=== PATIENT | male | born 1930 | race Caucasian/White ===

== ENCOUNTER 2017-01-12 10:00 | Inpatient (IN) | payer MEDICARE, OTHER ==
[~2017-01-12] VITALS: Ht 172.7 cm; Wt 84.2 kg
--- NOTE | ~2017-01-12 | CON ---
PATIENT'S NAME: GABBY [facility] AGE: 86 Y [address] ROOM: [id number] [place], [place] [address] LOCATION: GPCU ADMIT DATE: 01/12/2017 Consultation DISCHARGE DATE: FAMILY PHYSICIAN: PHYSICIAN, UNKNOWN ATTENDING PHYSICIAN: Gentry BALL DATE OF CONSULTATION: 01/12/2017 REFERRING PHYSICIAN: Anthony Fenton MD HOSPITAL CONSULTATION REASON FOR CONSULTATION: Hematochezia. HISTORY OF PRESENT ILLNESS: This is a very pleasant, 86-year-old gentleman with past medical history of coronary artery disease, last placement of drug-eluting stent placed in May 2016. The patient has been on dual anti-platelet therapy, being Brilinta and aspirin. The patient also has a past medical history significant for hypertension, and systolic heart failure. The patient presented to [facility] as he woke up at 4:00 a.m., on the day of presentation with multiple episodes of bright red blood per rectum. The patient reports at that time, there were clots that were visualized. He was seen at the [facility] and found to have a hemoglobin baseline of 14.0, with a recheck hemoglobin of 11.4. The patiently initially was normotensive, though became hypotensive with systolic blood pressure in the 80s. He was fluid resuscitated and given one unit of packed red blood cells on transferring to [facility]. At that time, the patient was seen and he did report a distant history of diarrhea, evaluated on January 04 by his primary care. He does state he was given some medicine, though cannot recall. He denies any associated abdominal pain, chest pain, chest pressure, shortness of breath, fever, chills, unexplained weight loss, or lower extremity edema. He also did state that he underwent a colonoscopy completed by his primary care in 2008 as the records were reviewed. It did show that there was some firmness on digital exam as he was sent to a general surgeon, though cannot recall any more details regarding this. PAST MEDICAL HISTORY: 1. BPH. 2. Coronary artery disease, status post PCI, last completed in May 2016, and currently on dual anti-platelet including aspirin and Brilinta. 3. Hypertension. 4. Systolic heart failure. PAST SURGICAL HISTORY: PATIENT'S NAME: [facility] AGE: 86 Y [address] ROOM: [address] [address] LOCATION: GPCU ADMIT DATE: 01/12/2017 Consultation DISCHARGE DATE: FAMILY PHYSICIAN: PHYSICIAN, UNKNOWN ATTENDING PHYSICIAN: Gentry BALL Hernia repair, and colonoscopy in 2008. SOCIAL HISTORY: The patient chews tobacco. He drinks alcohol on occasional basis. He lives by himself as he is . His four years ago. He is a retired rancher. FAMILY HISTORY: Reports as a foster child though denies any other knowledge to the rest of his family's medical history. ALLERGIES: PENICILLIN. CURRENT MEDICATIONS: Please refer to the medication administration record. REVIEW OF SYSTEMS: All point review of systems was completed. All were negative except for those identified in the History of Present Illness. PHYSICAL EXAMINATION: GENERAL: A very pleasant, 86-year-old gentleman seen in Intensive Care, who appears to be in no acute distress. VITAL SIGNS: Temperature 97.6, pulse is 68, respirations are 16, blood pressure 158/75, and oxygen saturation is 96% on room air. SKIN: [place], warm, dry. No jaundice. HEENT: Head is normocephalic and atraumatic. Pupils are equal, round, and reactive to light. Sclerae are clear. Nonicteric. Oral mucosa is pink and moist. No thyromegaly. NECK: Soft and supple. CARDIOVASCULAR: Regular. Normal S1 and S2. RESPIRATORY: Respirations even and unlabored. LUNGS: Clear to auscultation. ABDOMEN: Soft, round, nontender, and nondistended. Bowel sounds positive x4 quadrants. MUSCULOSKELETAL: No muscle weakness or atrophy. EXTREMITIES: No clubbing, cyanosis, or edema. NEUROLOGICAL: Grossly nonfocal. LABORATORY DATA AND IMAGING STUDIES: Labs and Diagnostics: Laboratory obtained at the outside facility was reviewed. This did show a white blood cell count of 19.6, hemoglobin of 10.7, hematocrit of 32.5, and platelets of 292,000. Chemistry panel included a potassium of 4.4, chloride of 110, CO2 of 22.1, glucose 186, BUN of 37, and PATIENT'S NAME: LUIS ANTONIO [facility] AGE: 86 Y [address] ROOM: [id number] [place], [place] [address] [facility] ADMIT DATE: 01/12/2017 Consultation DISCHARGE DATE: FAMILY PHYSICIAN: PHYSICIAN, UNKNOWN ATTENDING PHYSICIAN: Gentry BALL creatinine of 1.9. Total bilirubin 0.3, alkaline phosphatase of 74, ALT of 25, and AST of 17. ASSESSMENT AND PLAN: Again, this is a very pleasant, 86-year-old gentleman who was transferred from [facility] with acute lower gastrointestinal bleed. In discussion with the hospitalist, the patient has been on aspirin as well as Brilinta for percutaneous coronary intervention stent placement in May 2016. At this time, it was discussed that we will go forth with a bleeding scan. We did discuss continuing aspirin for his coronary artery disease. Further recommendations to be given status post receipt of tagged red blood cell scan. He will also be placed on a Protonix drip in case this is more upper gastrointestinal bleed. Further recommendations to be given after review of the nuclear medicine scan. Thank you for this consult. BRITT ALEMAN, BLOCK CHOPPER HAND FOR ANTHONY FENTON MD MMF/modl /[id number] d: 01/15/17 1430 t: 01/18/17 1741, CONSULTATION REPORT
--- NOTE | ~2017-01-12 | DS ---
PATIENT'S NAME: LUIS ANTONIO PIERRE [facility] AGE: 86 Y [address] ROOM: [address] [place], [place] [address] LOCATION: GPCU ADMIT DATE: 01/12/2017 Discharge Summary DISCHARGE DATE: 01/17/2017 FAMILY PHYSICIAN: Physician, Unknown ATTENDING PHYSICIAN: Shelly Rinaldi PRINCIPAL DIAGNOSES: 1. Acute blood loss anemia. 2. Hematochezia. 3. Lower gastrointestinal bleed, secondary to diverticulosis. 4. Heart failure with preserved ejection fraction, acute on chronic. 5. Coronary artery disease, status post drug-eluting stent to LAD in May 2016. 6. Acute kidney injury and chronic kidney disease, resolved. HOSPITAL COURSE: An 86-year-old very pleasant gentleman was admitted to [facility] with hematochezia. He was found to have acute blood loss anemia. He was admitted to the hospital and then intensive care unit and required packed red blood cell transfusion to maintain his hemoglobin as well as hemodynamics. He was generously resuscitated with IV fluids to avoid shock. Gastroenterology was consulted, and it appeared that the patient was having a lower GI bleed, so nuclear tag red blood cell study was done, but failed to reveal any source of bleeding. A colonoscopy was done, which could not identify any active source of bleeding. An upper endoscopy was also done, which did show some gastric as well as duodenal erosions. He was receiving dual antiplatelets at admission and his Brilinta was held. The GI bleed was attributed to the diverticulosis, which resolved on its own. His hemoglobin remained stable during the rest of the course of the hospitalization. I discussed the case with Dr. Barkley, and he was okay to stop the Brilinta at this point. Gastroenterology also recommended holding the Brilinta at this point. After aggressive hydration in the hospital, the lower extremity edema, we started him on Lasix for one week with some potassium replacement. He also had some cellulitis on the lower extremities, and I will send him home on Augmentin for 1 week. We will have him followup with Dr. Barkley in 1 week in [place] with a BMP. DISCHARGE MEDICATIONS: Discharge medications include: 1. Aspirin 81 mg p.o. every day. 2. Atorvastatin 10 mg p.o. every night at bedtime. 3. Lopressor 25 mg p.o. twice daily. 4. Lisinopril 15 mg twice daily. 5. Diltiazem 120 mg p.o. every day. 6. Tamsulosin 0.4 mg p.o. every night at bedtime. 7. Calcium carbonate plus D tablet, 1 tablet p.o. every day. 8. Ascorbic acid 500 mg p.o. every day. PATIENT'S NAME: LUIS ANTONIO PIERRE [facility] AGE: 86 Y [address] ROOM: [id number] [place] [id number] [facility] ADMIT DATE: 01/12/2017 Discharge Summary DISCHARGE DATE: 01/17/2017 FAMILY PHYSICIAN: Physician, Unknown ATTENDING PHYSICIAN: Shelly Rinaldi 9. Cetirizine 10 mg p.o. every night at bedtime. 10. Augmentin 875/125 mg p.o. b.i.d., 10 tablets for 5 days. 11. Lasix 40 mg p.o. daily for one week. 12. KCl 10 mEq p.o. b.i.d. for one week. 13. Pantoprazole 40 mg p.o once daily for 6 weeks. ACTIVITY ON DISCHARGE: As tolerated. DIET: Low-sodium diet. PROGRESS NOTE FROM THE DAY OF THE DISCHARGE: SUBJECTIVE: No shortness of breath, headache, fever, or chills. OBJECTIVE: Blood pressure 131/64, 16, 66, 98.3, saturating 95% on room air. I's and O's: 1350 out, 965 in. Net negative of -385. LABS ON THE DAY OF DISCHARGE: White blood cell count 15, hemoglobin 8.8, platelets 262. BUN 12, creatinine 1.1, sodium 144, potassium 3.6, chloride 109, GFR greater than 60. Procalcitonin on two consecutive days was less than 0.05. He did continue to have leukocytosis during the course of the hospitalization, but no significant infectious source was identified other than the lower extremity erythema, and diagnosis of cellulitis was made, and he was sent home on Augmentin. I spent 35 minutes in discharge planning and coordinating care of this patient. MADRID A KHALID, MD ARI/modl /[id number] d: 01/18/17 0235 t: 01/21/17 1323, DISCHARGE SUMMARY
--- NOTE | ~2017-01-12 | HP ---
PATIENT'S NAME: GABBY [facility] AGE: 86 Y [address] ROOM: [place] [address] LOCATION: GICU ADMIT DATE: 01/12/2017 History & Physical DISCHARGE DATE: FAMILY PHYSICIAN: PHYSICIAN, UNKNOWN ATTENDING PHYSICIAN: Gentry BALL DATE OF SERVICE: CHIEF COMPLAINT: Hematochezia. HISTORY OF PRESENT ILLNESS: The patient is an 86-year-old gentleman with a past medical history of coronary artery disease, last stent of drug-eluting stent placed on May 28, 2016, with drug-eluting stent, on dual anti-platelet with Brilinta and aspirin; hypertension; and systolic heart failure, who presents here from [facility] with GI bleed. The patient reports that he woke up at 4 a.m. this morning and had multiple episodes of bright red per rectum bowel movement. He also reports of clot with bowel movement. He reports that he had several episodes and does not remember how many. He was seen in the [facility] and was found to have a drop in hemoglobin to 11.4 from a baseline of 14. The patient initially was normotensive; however, was noted to have low blood pressure with systolic blood pressure in the high 80s and 90s. The patient was given IV fluids, received 1 unit of O negative blood, and transferred to our hospital for further workup. The patient reports that he has had some distant history of diarrhea and was evaluated by his primary care doctor on January 04 for diarrhea; however, he reports that they gave him some medication which resolved it. The patient denies abdominal pain, chest pain, shortness of breath, productive cough, fever, chills, weight loss, lower extremity edema, and loss of consciousness. PAST MEDICAL HISTORY: 1. BPH. 2. CAD, status post PCI, last done in May 2016. 3. Hypertension. 4. Systolic heart failure. PAST SURGICAL HISTORY: Hernia repair and colonoscopy in 2008. FAMILY HISTORY: The patient reports that he is a foster kid and does not know much about his family members. SOCIAL HISTORY: PATIENT'S NAME: CHERRI [facility] AGE: 86 Y [address] ROOM: [place] [address] LOCATION: GICU ADMIT DATE: 01/12/2017 History & Physical DISCHARGE DATE: FAMILY PHYSICIAN: PHYSICIAN, UNKNOWN ATTENDING PHYSICIAN: Gentry BALL The patient chews tobacco. Occasional drink. The patient lives by himself. 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 MEDICATIONS: He is on: 1. Lipitor 10 mg. 2. Flomax 0.4 mg. 3. Calcium carbonate. 4. Vitamin C. 5. Zyrtec. 6. Aspirin 81 mg. 7. Lisinopril 10 mg. 8. Lopressor 25 mg p.o. b.i.d. 9. Brilinta 90 mg p.o. b.i.d. REVIEW OF SYSTEMS: All systems have been reviewed and are negative except for what I mentioned in the HPI. PHYSICAL EXAMINATION: VITAL SIGNS: Temperature 96.6, blood pressure 106/72, heart rate of 71, respiratory rate of 16, and saturating 98% on room air. GENERAL APPEARANCE: The patient is alert and awake, in no acute distress. HEENT: Head: Normocephalic, atraumatic. Eyes: Extraocular muscles intact. Nose: No nasal discharge. Mouth: Moist oral mucosa. Ears: No ear discharge. CHEST: Clear to auscultation bilaterally. Heart. Normal rate and rhythm. No murmur, rubs, or gallops heard. ABDOMEN: Soft, nontender, and nondistended. Bowel sounds active. SKIN: Warm to touch. MUSCULOSKELETAL: Range of motion intact. No obvious joint effusion. EXTREMITIES: No edema. Mild venous stasis change. CENTRAL NERVOUS SYSTEM: The patient is alert and oriented x3. Motor and sensory grossly intact. The patient has mild resting tremor in his right upper extremity which is chronic. LABORATORY DATA: Labs done at the outside hospital shows white blood cell count of 19.6, hemoglobin of 10.7, and platelets of 292. Creatinine of 1.9, BUN of 37, and glucose of 186. ASSESSMENT AND PLAN: 1. Acute blood loss anemia. The patient is an 86-year-old gentleman with a history of coronary artery disease, on aspirin and Brilinta, who presents here with gastrointestinal bleed, etiology most likely secondary to lower PATIENT'S NAME: LUIS ANTONIO PIERRE [facility] AGE: 86 Y [address] ROOM: [id number] [place], [place] [address] LOCATION: GICU ADMIT DATE: 01/12/2017 History & Physical DISCHARGE DATE: FAMILY PHYSICIAN: PHYSICIAN, UNKNOWN ATTENDING PHYSICIAN: Gentry BALL gastrointestinal bleed. The patient initially had labile blood pressure at [facility], was given 1 unit of packed red blood cells and fluids, and transferred to our facility. The patient is currently stable. Blood pressure 126/80 currently with a heart rate of 59. To continue IV fluids. To check hemoglobin q.6 hours. To keep hemoglobin greater than 8 since the patient has a history of coronary artery disease. We will continue aspirin; however, we will discontinue Brilinta. Case was discussed with Dr. Barkley on the phone and is agreeable. Also, case discussed with Dr. Lutz, and Dr. Lutz is agreeable with continuation of aspirin due to his coronary artery disease. Gastroenterology is consulted. The patient is going to have RBC tag scan and possible colonoscopy tomorrow. Etiology most likely lower gastrointestinal bleed; however, we will start Protonix drip just in case as this also could be upper gastrointestinal. 2. Gastrointestinal bleed. See problem #1. 3. History of coronary artery disease. Last stent placed in May 2016, drug eluting, in his left anterior descending, by Dr. Barkley. We will continue aspirin and hold Brilinta. Case discussed with Dr. Barkley. We will also continue his Lipitor. We will hold beta christie and lisinopril as the patient had recent history of labile blood pressure while in [place]. 4. Acute kidney injury. Patient noted to have a creatinine of 1.9, and his last creatinine in our hospital in January 2017 is 1.2. Etiology most likely prerenal. We will treat underlying etiology and start IV fluids. We will hold lisinopril and hypertensive medication. Also, avoid nephrotoxic medication. We will follow the patient closely. 5. Systolic heart failure. The patient's last echo shows ejection fraction close to 45%. The patient appears compensated currently. Holding lisinopril and beta christie due to early history of labile blood pressure. Currently, on IV fluids. We will follow the patient clinically. 6. Benign prostatic hypertrophy. We will hold Flomax for now due to low blood pressure. 7. Resting tremor noted to right upper extremity. Etiology most likely secondary to history of possible Parkinson disease. The patient reports that he has been having this for quite a while. We will follow clinically. 8. Tobacco abuse. The patient chews tobacco. Discussion was made about tobacco cessation. Greater than 3 minutes, but less than 10 minutes were spent about cessation. The patient is currently not ready to discontinue his tobacco chewing. We will offer the patient nicotine patch. 9. I have personally reviewed the patient's medical record including, but not limited to blood work. Total time spent with the patient is greater than 70 minutes, more than 50% of the time spent in direct patient care and patient consultation. Case was reviewed with the patient and nursing PATIENT'S NAME: LUIS ANTONIO PIERRE [facility] AGE: 86 Y [address] ROOM: [address] [address] LOCATION: [facility] ADMIT DATE: 01/12/2017 History & Physical DISCHARGE DATE: FAMILY PHYSICIAN: PHYSICIAN, UNKNOWN ATTENDING PHYSICIAN: Gentry BALL staff. All questions were answered to the patient's satisfaction. Case was reviewed with Dr. Lutz, our GI physician, and also with Dr. Barkley over the phone about antiplatelet use. We will admit the patient for gastrointestinal bleed. Code status was discussed on admission. Code status is full code. QUINN CHURCH MD AD/modl /[id number] D: T: HISTORY & PHYSICAL
[~2017-01-12 10:00] MED LIST: ASCORBIC ACID500 MG PO; ASPIRIN LO-DOSE81 MG PO; ASPIRIN325 MG PO; BRILINTA90 MG PO; CALCIUM 500 +1 EACH PO; FLOMAX0.4 MG PO; LASIX20 MG PO; LIPITOR10 MG PO; LOPRESSOR25 MG PO; LOPRESSOR50 MG PO; OMNICEF 300MG300 MG PO; PRINIVIL (ZESTR20 MG PO; PRINIVIL OR ZES10 MG PO; ZYRTEC10 MG PO
[2017-01-12] MEDS ORDERED: DILTIAZEM ER120 M2 PO (12:08)
[2017-01-12 13:17] LABS: HEMATOCRIT 30.9 % (33.0-50.0)
--- NOTE | 2017-01-12 17:45 | NUR ---
Significant Event: GI: 2 bloody stools. Hgb 10.0. CARDIO: Temp 97.6. HR 60s. SBP 130s-150s. Follow up: Tagged RBCs at 1830 today. Colonoscopy on 01/13.
[2017-01-12 18:15] LABS: HEMOGLOBIN 9.2 g/dL (11.0-16.0)
[2017-01-13 01:15] LABS: HEMOGLOBIN 8.6 g/dL (11.0-16.0)
--- NOTE | 2017-01-13 06:01 | NUR ---
BOWEL PREP X2 GIVEN THIS SHIFT. COPIOUS AMOUNTS OF BLOODY STOOLS AFTER BOWEL PREP. NPO SINCE SECOND PREP GIVEN. SR, SBP 110S-140S, PULSES GOOD. SERIAL H/H CONTINUE TO TREND DOWN. HOSPITALIST INFORMED AND CLOT TO BE DRAWN WITH NEXT LAB DRAW. REMAINS ON RA. GOOD APPETITE AND TOLERATED CLEAR LIQUIDS WELL FOR SUPPER. VOIDING PER URINAL, OUTPUT ADEQUATE. COLONOSCOPY SCHEDULED FOR TODAY. REPEAT RED-TAG SCAN SCHEDULED FOR TODAY. JODIE ROBLES RN
[2017-01-13 06:50] LABS: BASOPHIL % 0.1 %; EOSINOPHIL # 2.6 K/uL (0.0-0.5); EOSINOPHIL % 16.1 %; HEMATOCRIT 24.6 % (33.0-50.0); HEMOGLOBIN 8.2 g/dL (11.0-16.0); IMMATURE GRANULOCYTE # 0.1 K/uL (0.0-0.3); IMMATURE GRANULOCYTE % 0.6 %; LYMPHOCYTE # 3.4 K/uL (0.8-4.0); LYMPHOCYTE % 20.8 %; MCH 29.7 pg (27.0-34.0); MCHC 33.3 gm/dL (32.0-36.5); MCV 89.1 fl (83.0-98.0); MONOCYTE # 1.1 K/uL (0.0-1.0); MPV 9.6 fl (9.4-12.4); NEUTROPHIL # (ANC) 8.9 K/uL (1.4-9.0); NEUTROPHIL % 55.4 %; NRBC % 0 /100WBC (0-0.00); PLATELET COUNT 209 K/uL (150-450); RDW-CV 15.1 % (11.9-14.6)
[2017-01-13 06:51] LABS: RBC 2.76 M/uL (3.50-5.50); WBC 16.1 K/uL (4.0-11.0)
[2017-01-13 07:07] LABS: ALBUMIN 2.5 gm/dL (3.5-5.0); CREATININE 1.3 mg/dL (0.6-1.3); POTASSIUM 4.2 mMol/L (3.7-5.1); TOTAL BILIRUBIN 0.5 mg/dL (0.0-1.5)
[2017-01-13 07:14] LABS: ANION GAP 11.2 (10.0-19.0); TOTAL PROTEIN 4.5 g/dL (6.0-8.4)
[2017-01-13 15:54] LABS: HEMATOCRIT 22.7 % (33.0-50.0)
[2017-01-13 15:56] LABS: HEMOGLOBIN 7.5 g/dL (11.0-16.0)
--- NOTE | 2017-01-13 17:43 | NUR ---
Significant Event:GI: EGD/Colonscopy and tagged RBC study today. Diverticuli bleeding, excoriated duodenum. Hgb 7.5, 1 unit PRBCs given at 1700. 4 jordan blood BMs today, volumes 400 then 100 then 50 then 50 ml. Follow up: Q4H H&H. Call if Hgb < 8.0
[2017-01-13 19:16] LABS: HEMATOCRIT 25.5 % (33.0-50.0); HEMOGLOBIN 8.6 g/dL (11.0-16.0)
[2017-01-13 23:12] LABS: HEMATOCRIT 23.7 % (33.0-50.0)
[2017-01-13 23:13] LABS: HEMOGLOBIN 7.8 g/dL (11.0-16.0)
[2017-01-14 03:08] LABS: BASOPHIL % 0.1 %; EOSINOPHIL % 14.3 %; HEMATOCRIT 26.9 % (33.0-50.0); IMMATURE GRANULOCYTE # 0.1 K/uL (0.0-0.3); IMMATURE GRANULOCYTE % 0.5 %; LYMPHOCYTE # 3.3 K/uL (0.8-4.0); LYMPHOCYTE % 23.9 %; MCHC 33.5 gm/dL (32.0-36.5); MCV 86.8 fl (83.0-98.0); MONOCYTE # 0.9 K/uL (0.0-1.0); MONOCYTE % 6.8 %; MPV 9.6 fl (9.4-12.4); NEUTROPHIL # (ANC) 7.5 K/uL (1.4-9.0); NEUTROPHIL % 54.4 %; NRBC % 0 /100WBC (0-0.00); PLATELET COUNT 172 K/uL (150-450); RDW-CV 14.6 % (11.9-14.6); WBC 13.8 K/uL (4.0-11.0)
[2017-01-14 03:26] LABS: ALBUMIN 2.3 gm/dL (3.5-5.0); ALK PHOS 67 IU/L (33-138); ALT 19 IU/L (12-78); ANION GAP 13.1 (10.0-19.0); AST 12 IU/L (10-40); BLOOD UREA NITROGEN 17 mg/dL (6-24); CALCIUM 7.1 mg/dL (8.5-10.5); CHLORIDE 117 mMol/L (96-110); CO2 21 mMol/L (22-32); ESTIMATED GFR (MDRD EQUATION) > 60; POTASSIUM 4.1 mMol/L (3.7-5.1); SODIUM 147 mMol/L (135-145); TOTAL BILIRUBIN 0.8 mg/dL (0.0-1.5); TOTAL PROTEIN 4.2 g/dL (6.0-8.4)
--- NOTE | 2017-01-14 05:31 | NUR ---
Significant event: 1 unit of PRBCs infused at 0040 for hgb below 8. Bloody stools x2 during shift totaling less than 100ml of jordan blood. Bowel sounds active, abdomen distended, oxygen sats drop with position changes and activity. EGD and colonoscopy on 01/13/17. Follow up: monitor H&H, monitor bloody stools
[2017-01-14 09:06] LABS: HEMATOCRIT 29.3 % (33.0-50.0); HEMOGLOBIN 9.9 g/dL (11.0-16.0)
--- NOTE | 2017-01-14 15:05 | NUR ---
Significant Event: GI: Sarwat blood BM, small, x 3 this shift. Hgb 9.9. Tolerating clear liquid diet. ACTIVITY: Ambulating in room to toilet. Up to chair. 1PA. Follow up: Monitor BMs and Q6h Hgb.
[2017-01-14 17:12] LABS: HEMATOCRIT 26.8 % (33.0-50.0); HEMOGLOBIN 9.2 g/dL (11.0-16.0)
[2017-01-14 23:12] LABS: HEMOGLOBIN 9.8 g/dL (11.0-16.0)
[2017-01-15 05:10] LABS: BASOPHIL # 0.1 K/uL (0.0-0.2); BASOPHIL % 0.4 %; EOSINOPHIL # 1.7 K/uL (0.0-0.5); EOSINOPHIL % 12.9 %; HEMATOCRIT 26.6 % (33.0-50.0); IMMATURE GRANULOCYTE # 0.1 K/uL (0.0-0.3); IMMATURE GRANULOCYTE % 0.5 %; LYMPHOCYTE # 2.7 K/uL (0.8-4.0); LYMPHOCYTE % 20.6 %; MCHC 33.8 gm/dL (32.0-36.5); MCV 85.8 fl (83.0-98.0); MONOCYTE # 0.9 K/uL (0.0-1.0); MPV 9.4 fl (9.4-12.4); NEUTROPHIL # (ANC) 7.7 K/uL (1.4-9.0); NEUTROPHIL % 58.6 %; NRBC % 0 /100WBC (0-0.00); PLATELET COUNT 190 K/uL (150-450); RDW-CV 14.2 % (11.9-14.6); WBC 13.1 K/uL (4.0-11.0)
[2017-01-15 05:28] LABS: ALBUMIN 2.4 gm/dL (3.5-5.0); ALK PHOS 74 IU/L (33-138); ALT 20 IU/L (12-78); ANION GAP 9.8 (10.0-19.0); AST 17 IU/L (10-40); BLOOD UREA NITROGEN 10 mg/dL (6-24); CALCIUM 7.6 mg/dL (8.5-10.5); CHLORIDE 114 mMol/L (96-110); CO2 25 mMol/L (22-32); CREATININE 0.9 mg/dL (0.6-1.3); ESTIMATED GFR (MDRD EQUATION) > 60; POTASSIUM 3.8 mMol/L (3.7-5.1); SODIUM 145 mMol/L (135-145); TOTAL BILIRUBIN 0.5 mg/dL (0.0-1.5); TOTAL PROTEIN 4.4 g/dL (6.0-8.4)
--- NOTE | 2017-01-15 07:18 | NUR ---
Significant Event: TRANSFERRED TO PCU AT 1840 BY CHAIR. PT A&O X3. DENIES PAIN. ON ROOM AIR. VOIDS PER URINAL. ONLY PASSING GAS THIS SHIFT. NO BMs NOTED. Follow up:
[2017-01-15 11:47] LABS: HEMATOCRIT 28.2 % (33.0-50.0); HEMOGLOBIN 9.5 g/dL (11.0-16.0)
[2017-01-15 17:17] LABS: HEMOGLOBIN 9.3 g/dL (11.0-16.0)
--- NOTE | 2017-01-15 17:28 | NUR ---
Significant Event: VSS ON RA. HYPERACTIVE BOWEL SOUNDS X4. FLATUS PRESENT BUT NO BM TODAY. TOLERATED CLEAR LIQUIDS TODAY WITH REGULAR DIET ORDERED FOR SUPPER. PIV TO L) HAND SL'D. NO C/O PAIN. SBA WITH ACTIVITY. PT/OT TODAY. H/H Q6HR WITH RESULTS OF 9.5 AND 9.3 TODAY. Follow up: LABS IN AM. POSSIBLY HOME TOMORROW IF TOLERATING REGULAR DIET AND NO BLOODY BOWEL MOVEMENT.
[2017-01-15 22:57] LABS: HEMATOCRIT 25.6 % (33.0-50.0); HEMOGLOBIN 8.8 g/dL (11.0-16.0)
[2017-01-16 04:13] LABS: BASOPHIL # 0.1 K/uL (0.0-0.2); BASOPHIL % 0.4 %; EOSINOPHIL # 1.9 K/uL (0.0-0.5); EOSINOPHIL % 13.5 %; HEMATOCRIT 25.5 % (33.0-50.0); HEMOGLOBIN 8.6 g/dL (11.0-16.0); IMMATURE GRANULOCYTE # 0.1 K/uL (0.0-0.3); IMMATURE GRANULOCYTE % 0.6 %; LYMPHOCYTE # 3.2 K/uL (0.8-4.0); LYMPHOCYTE % 22.8 %; MCH 29.1 pg (27.0-34.0); MCHC 33.7 gm/dL (32.0-36.5); MCV 86.1 fl (83.0-98.0); MONOCYTE # 0.8 K/uL (0.0-1.0); MONOCYTE % 5.5 %; MPV 9.4 fl (9.4-12.4); NEUTROPHIL # (ANC) 8.1 K/uL (1.4-9.0); NEUTROPHIL % 57.2 %; NRBC % 0 /100WBC (0-0.00); RBC 2.96 M/uL (3.50-5.50); RDW-CV 14.2 % (11.9-14.6); WBC 14.2 K/uL (4.0-11.0)
[2017-01-16 04:15] LABS: PLATELET COUNT 229 K/uL (150-450)
[2017-01-16 04:27] LABS: ANION GAP 8.8 (10.0-19.0); BLOOD UREA NITROGEN 10 mg/dL (6-24); CALCIUM 7.7 mg/dL (8.5-10.5); CHLORIDE 113 mMol/L (96-110); CO2 26 mMol/L (22-32); ESTIMATED GFR (MDRD EQUATION) > 60; POTASSIUM 3.8 mMol/L (3.7-5.1); SODIUM 144 mMol/L (135-145)
--- NOTE | 2017-01-16 05:03 | NUR ---
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
[2017-01-16 13:05] LABS: BILIRUBIN URINE NEGATIVE (NEGATIVE); BLOOD URINE NEGATIVE /UL (NEGATIVE); GLUCOSE URINE NEGATIVE (NEGATIVE); KETONE URINE NEGATIVE (NEGATIVE); LEUKOCYTES URINE NEGATIVE /UL (NEGATIVE); NITRITE URINE NEGATIVE (NEGATIVE); PROTEIN URINE NEGATIVE (NEGATIVE); UROBILINOGEN URINE NORMAL (NORMAL)
[2017-01-16 13:16] LABS: COLOR URINE YELLOW (YELLOW); TURBIDITY URINE CLEAR (CLEAR)
--- NOTE | 2017-01-16 14:31 | NUR ---
1200 Stopped by to see Kendell but he was on the phone. Will try to see again later. 1220 Stopped by again before I left the floor to try to touchbase with Kendell, but he was working with Pat in PT. Will attempt to see him again later today or tomorrow. Per discharge huddle board, it appears his dismissal plan if for him to return home.
--- NOTE | 2017-01-16 16:46 | NUR ---
Significant Event: METOPROLOL PO 25MG INITIATED WITH SBP 160'S BEFORE WITH SBP NOW 130'S. AFEBRILE. ON RA WITH LUNGS CLEAR/DIM. NO C/O PAIN. LASIX 40MG IVP GIVEN X1 WITH BLE REMAINING 2+. UOP TOTAL THIS SHIFT OF 1200ML. UA SENT WITH C&S. SPUTUM CX SPECIMEN CUP AT BEDSIDE WITH NO SAMPLE YET. H/H Q12HR WITH RESULTS PENDING. HGB THIS AM 8.6. NO BM TODAY WITH ABD SOUNDS HYPERACTIVE X4. FLATUS PRESENT. Follow up: LABS IN AM. POSSIBLY HOME TOMORROW. Q12HR H/H.
[2017-01-16 17:04] LABS: HEMATOCRIT 28.1 % (33.0-50.0); HEMOGLOBIN 9.3 g/dL (11.0-16.0)
[2017-01-17 04:12] LABS: BASOPHIL # 0.1 K/uL (0.0-0.2); BASOPHIL % 0.5 %; EOSINOPHIL # 1.9 K/uL (0.0-0.5); EOSINOPHIL % 11.8 %; HEMATOCRIT 25.9 % (33.0-50.0); HEMOGLOBIN 8.8 g/dL (11.0-16.0); IMMATURE GRANULOCYTE # 0.1 K/uL (0.0-0.3); IMMATURE GRANULOCYTE % 0.5 %; LYMPHOCYTE # 3.6 K/uL (0.8-4.0); LYMPHOCYTE % 22.4 %; MCH 29.2 pg (27.0-34.0); MONOCYTE % 6.1 %; MPV 9.2 fl (9.4-12.4); NEUTROPHIL # (ANC) 9.3 K/uL (1.4-9.0); NEUTROPHIL % 58.7 %; NRBC % 0 /100WBC (0-0.00); PLATELET COUNT 262 K/uL (150-450); RBC 3.01 M/uL (3.50-5.50); RDW-CV 14.1 % (11.9-14.6); WBC 15.9 K/uL (4.0-11.0)
[2017-01-17 04:32] LABS: ANION GAP 10.6 (10.0-19.0); BLOOD UREA NITROGEN 12 mg/dL (6-24); CALCIUM 7.7 mg/dL (8.5-10.5); CHLORIDE 109 mMol/L (96-110); CO2 28 mMol/L (22-32); CREATININE 1.1 mg/dL (0.6-1.3); ESTIMATED GFR (MDRD EQUATION) > 60; POTASSIUM 3.6 mMol/L (3.7-5.1); SODIUM 144 mMol/L (135-145)
--- NOTE | 2017-01-17 04:32 | NUR ---
Significant Event: A/O, SBP 140-150s, HR 60-low 100s, afebrile, RA, denies pain, only c/o itching to bilateral lower legs and upper back, lotion applied, SBA to bathroom, no bm, passing flatus Follow up: possible d/c home today?
[2017-01-17] MEDS ORDERED: PROTONIX40 MG PO (14:20)
[2017-01-17] MEDS ORDERED: AUGMENTIN 875-1 EACH PO (14:30)
[2017-01-17] MEDS ORDERED: LASIX40 MG PO (14:31)
[2017-01-17] MEDS ORDERED: K-TAB 10MEQ10 MEQ PO (14:32)
--- NOTE | 2017-01-17 16:58 | NUR ---
Patient dismissed to home with son in law. Denies question or concern of discharge. No stools today. Verbalizes understanding of meds and last dose taken. Provided education on HF and HF calendar. IV dc'd.
== END 2017-01-17 16:55 | disposition disaster alternative care site (69) | DRG 377 ==
LOC: GICU 11:12 → GPCU 01-14 19:11
PROVIDERS: Internal Medicine; ADMIT Internal Medicine
PROC: 0DJ08ZZ Inspection of Upper Intestinal Tract, Via Natural or Artificial Opening Endoscopic (ICD-10-PCS; principal; 2017-01-13)
PROC: 0DJD8ZZ Inspection of Lower Intestinal Tract, Via Natural or Artificial Opening Endoscopic (ICD-10-PCS; principal; 2017-01-13)
DX: K57.31 Diverticulosis of large intestine without perforation or abscess with bleeding (principal); I50.33 Acute on chronic diastolic (congestive) heart failure; N17.9 Acute kidney failure, unspecified; D62 Acute posthemorrhagic anemia; I13.0 Hypertensive heart and chronic kidney disease with heart failure and stage 1 through stage 4 chronic kidney disease, or unspecified chronic kidney disease; I11.0 Hypertensive heart disease with heart failure; K25.9 Gastric ulcer, unspecified as acute or chronic, without hemorrhage or perforation; I25.10 Atherosclerotic heart disease of native coronary artery without angina pectoris; Z95.5 Presence of coronary angioplasty implant and graft; Z79.82 Long term (current) use of aspirin; N40.0 Benign prostatic hyperplasia without lower urinary tract symptoms; F17.210 Nicotine dependence, cigarettes, uncomplicated; N18.9 Chronic kidney disease, unspecified; K26.9 Duodenal ulcer, unspecified as acute or chronic, without hemorrhage or perforation; K64.4 Residual hemorrhoidal skin tags; K64.8 Other hemorrhoids
CPT/HCPCS: A9560; C9113; J1940; J7030; J7040; J7050; J7120; P9016